=== PATIENT | female | born 1950 | race Caucasian/White ===

== ENCOUNTER 2019-02-24 22:44 | Emergency (ER) | payer BC, OTHER ==
[~2019-02-24] VITALS: Ht 160 cm; Wt 79.9 kg
[~2019-02-24 22:44] MED LIST: IBUP-1561 PO
[2019-02-24 23:03] VITALS: BP 157/72; PULSE 72; RESP 17; Ht 160 cm; Wt 79.9 kg
[2019-02-24] MEDS ORDERED: HYDROCODONE/APAP (5/325) TAB PO ONE (23:30)
--- NOTE | 2019-02-25 01:50 | ERD ---
ER Documentation Chief Complaint Chief Complaint SENT BY PCP FOR EVAL S/P SLIP AND FALL, BUMP TO RT ANTERIOR HEAD HPI 68-year-old female with no significant past medical history presenting to the emergency department complaining of contusion to the right forehead with some bruising after a fall this morning at 10:20 AM. She states she tripped and fell forward she missed the last step and she hit her head against a wall. Her pain is rated 6/10 in severity and constant. she has headache localized to the right frontal region. She is not on blood thinners. There is no loss of consciousness or vomiting. She denies any other symptoms at this time. ROS All systems reviewed and are negative except as per history of present illness. Medications Home Meds Active Scripts Ibuprofen* (Motrin*) 400 Mg Tab, 400 MG PO Q6, #30 TAB Prov:HIGINIO WISEMAN PA-C 02/25/19 Allergies Allergies: Coded Allergies: No Known Allergy (Unverified , 02/24/19) PMhx/Soc Medical and Surgical Hx: pt denies Medical Hx, pt denies Surgical Hx Hx Alcohol Use: No Hx Substance Use: No Hx Tobacco Use: No Smoking Status: Never smoker FmHx Family History: No diabetes Physical Exam Vitals Vital Signs Date Temp Pulse Resp B/P (MAP) Pulse Ox O2 O2 Flow FiO2 Time Delivery Rate 02/24/19 98.1 72 17 157/72 96 23:03 (100) Physical Exam Const: No acute distress Head: Soft hematoma without palpable skull fracture to the right frontal region of the head. Eyes: Normal Conjunctiva ENT: Normal External Ears, Nose and Mouth. Neck: Full range of motion. No meningismus. Resp: Clear to auscultation bilaterally Cardio: Regular rate and rhythm, no murmurs Abd: Soft, non tender, non distended. Normal bowel sounds Skin: No petechiae or rashes Back: No midline or flank tenderness Ext: No cyanosis, or edema Neur: Awake and alert. No neurological deficits. Psych: Normal Mood and Affect Results 24 hrs Current Medications Medications Dose Sig/Vicente Start Time Status Last (Trade) Ordered Route PRN Stop Time Admin Dose Reason Admin 1 tab ONCE ONCE 02/24/19 DC 02/24/19 Acetaminophen PO 23:30 02/24/19 23:34 / 23:31 Hydrocodone Bitart ([place] (5/325)) Procedures/MDM 68-year-old female presents to the emergency department for a contusion to the right side of her head after a fall this morning. Head CT was negative and was interpreted by the radiologist. No evidence to suggest intracranial hemorrhage, CVA, TIA, subarachnoid hemorrhage, subdural hematoma, or other emergent process. Patient will be discharged home in stable condition with a prescription for ibuprofen. She was treated with [place] in the department with improvement of her symptoms. Patient advised to return immediately for new or concerning symptoms. She understands and agrees with the plan. Patient's blood pressure was elevated (>120/80) but appears stable without evidence of hypertension emergency or urgency. The patient is to follow-up and pursue outpatient monitoring and therapy with their primary care physician within 1 week and return immediately if they have any new, worsening, or concerning symptoms. Departure Diagnosis: Primary Impression: Fall with no significant injury Condition: Fair Patient Instructions: Fall Prevention Ref[facility]: [facility] Usted se schofield hecho un examen mdico de control que le indica que no est en ana condicin que requiera tratamiento urgente en el Departamento de Emergencia. Un estudio ms profundo y el tratamiento de garcia condicin pueden esperar sin ningn riesgo hasta que usted sea atendida/o en el consultorio de garcia mdico o ana clnica. Es responsabilidad suya arreglar ana heidy para el seguimiento del bennie. MANEJO DE CONDICIONES NO URGENTES EN EL FUTURO 1) Si usted tiene un mdico de atencin primaria: Usted debera llamar a garcia mdico de atencin primaria antes de venir al departamento de emergencia. Despus de las horas de consultorio, garcia doctor o garcia asociado/a est disponible por telfono. El mdico o enfermero de roderick en el servicio telefnico puede asesorarle por hyacinth medio para atender el problema, o bennie contrario se puede programar ana heidy. 2) Si usted no tiene un mdico de atencin primaria: Llame al mdico o clnica de referencia que aparece abajo lucas las horas de consultorio para hacer ana heidy para que le vean. CLINICAS: [place] [id number] [phone] [facility] [phone] [id number] [place] [address] [phone] [place] [address] [phone] [place] [address] [phone] [facility] [phone] [address] Additional Instructions: Llame al doctor MAANA y jl ana HEIDY PARA DENTRO DE 1-2 PERKINS.Dgale a la secretaria que nosotros le instruimos hacer esta heidy.Avise o llame si garcia condicin se empeora antes de la heidy. Regresa aqui si peor o no mejor. HIGINIO WISEMAN PA-C Feb 25, 2019 01:50
== END 2019-02-25 02:03 | disposition home or self-care (01) ==
LOC: FTE 22:44
DX: S00.83XA Contusion of other part of head, initial encounter (principal); W01.198A Fall on same level from slipping, tripping and stumbling with subsequent striking against other object, initial encounter; Y92.9 Unspecified place or not applicable
CPT/HCPCS: 70450